=== PATIENT | female | born 1990 | race Caucasian/White ===

== ENCOUNTER 2017-06-09 01:46 | Emergency (ER) | payer BC ==
[2017-06-09] MEDS ORDERED: Cyclobenzaprine 10 MG Tab PO ONE (01:47)
[2017-06-09] MEDS ORDERED: predniSONE 20 MG Tab PO ONE (01:47)
[2017-06-09 02:23] VITALS: BP 138/82
[2017-06-09] MEDS ORDERED: Cyclobenzaprine 10 MG Tab ONE (02:49)
[2017-06-09] MEDS ORDERED: predniSONE 20 MG Tab ONE (02:49)
--- NOTE | 2017-06-09 03:05 | EDM.PDOC ---
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 Increased pain with deep breathing. No hx blood clots. No recent URI symptoms.No shortness of breath. Smoker 4-5 cigarettes per day. Ibuprofen earlier that didn't help much. Pain worse when trying to lay on back or right side. 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 [No Known Home Meds] 05/19/16 [History] Past Medical History - Past Surgical History HEENT Surgical History: Reports: Adenoidectomy, Tonsillectomy Musculoskeletal Surgical History: Reports: Arthroscopic Knee Social & Family History - Tobacco Use Smoking Status *Q: Current Every Day Smoker Years of Tobacco use: 16 Packs/Tins Daily: 3 - Caffeine Use Caffeine Use: Reports: Soda - Recreational Drug Use Recreational Drug Use: No Review of Systems - Review of Systems Review Of Systems: ROS reveals no pertinent complaints other than HPI. ED EXAM, GENERAL - Physical Exam Exam: See Below Exam Limited By: No Limitations General Appearance: Alert, No Apparent Distress Eye Exam: Bilateral Eye: EOMI Ears: Normal External Exam, Normal TMs Nose: Normal Inspection Throat/Mouth: Normal Inspection Head: Atraumatic, Normocephalic Neck: Normal Inspection Respiratory/Chest: No Respiratory Distress, Lungs Clear, Normal Breath Sounds. No: Respiratory Distress, Rales, Rhonchi, Wheezing Cardiovascular: Normal Peripheral Pulses, Regular Rate, Rhythm GI/Abdominal: Normal Bowel Sounds, Soft, Non-Tender Extremities: Other (lateral right upper tenderness with palpation. Knotty firmness palpable below medial scapula) Neurological: Alert, Oriented, CN II-XII Intact Psychiatric: Normal Affect, Normal Mood Skin Exam: Warm, Dry, Intact, Normal Color Course - Vital Signs Last Recorded V/S: Last Vital Signs Temp 97.3 F 06/09/17 02:15 Pulse 88 06/09/17 02:15 Resp 17 06/09/17 02:15 BP 138/82 06/09/17 02:15 Pulse Ox 100 06/09/17 02:15 - Orders/Labs/Meds Meds: Medications Discontinued Medications Generic Name Dose Route Start Last Admin Trade Name Bhumika PRN Reason Stop Dose Admin Cyclobenzaprine HCl Confirm 06/09/17 02:49 Flexeril Administered 06/09/17 02:50 Dose 10 mg .ROUTE .STK-MED ONE Prednisone Confirm 06/09/17 02:49 Prednisone Administered 06/09/17 02:50 Dose 20 mg .ROUTE .STK-MED ONE Departure - Departure Time of Disposition: 02:53 Disposition: Home, Self-Care 01 Condition: Good Clinical Impression: Muscle spasm - Discharge Information Instructions: Muscle Cramps and Spasms, [id number] Referrals: Sky Jane MD [Primary Care Provider] - Forms: ED Department Discharge Additional Instructions: increase fluid tyleno 650 every 4 hours s needed ibuprofen up to 600mg every 6 hours with food Prednisone 20mg daily for 5 days flexeril 10mg one every 8 hours as needed for spasm follow up if symptoms worsen may use heat pack to
== END 2017-06-09 03:00 | disposition home or self-care (01) ==
LOC: DL.ED 01:46
DX: M62.838 Other muscle spasm (principal); F17.210 Nicotine dependence, cigarettes, uncomplicated
CPT/HCPCS: 99283; A9270-GY

== ENCOUNTER 2022-06-27 10:17 | Emergency (ER) | payer BC ==
[2022-06-27] MEDS ORDERED: Iopamidol 612 MG/ML 100 ML Bottle IVPUSH ONE (10:27)
[2022-06-27] MEDS ORDERED: Ondansetron 4 MG/2 ML SDV IVPUSH ONE (10:33)
[2022-06-27] MEDS ORDERED: Ketorolac 30 MG/ML SDV IVPUSH ONE (10:33)
[2022-06-27 10:51] VITALS: BP 115/85; PULSE 93
[2022-06-27 11:00] LABS: ANION GAP 13.8 mEq/L (7-13); CHLORIDE,CL 100 mmol/L (98-107); SODIUM,NA 137 mmol/L (136-145)
[2022-06-27 11:02] LABS: ESTIMATED GFR 104 mL/min (>=60)
== END 2022-06-27 11:58 | disposition home or self-care (01) ==
LOC: DL.ED 10:17
DX: N83.201 Unspecified ovarian cyst, right side (principal)
CPT/HCPCS: 36415; 74177; 80053; 81001; 84703; 85025; 87086; 96374; 96375; 99283; 99284-25; J1885; J2405; Q9967